=== PATIENT | female | born 1970 ===

== ENCOUNTER 2017-08-09 14:17 | Observation (INO) | payer BC ==
[2017-08-09 14:17] VITALS: PULSE 128
[2017-08-09 14:54] LABS: BASO # 0.04 K/mm3 (0.0-2.0); BASO % 0.3 % (0.0-3.0); EOS % 0.3 % (1.5-5.0); GRAN # 9.97 (1.4-6.5); GRAN % 82.2 % (50.0-68.0); LYMPH # 1.6 (1.2-3.4); LYMPH % 13.3 % (22.0-35.0); MEAN CELL VOLUME 82.9 fl (80.0-105.0); MEAN CORPUSCULAR HEMOGLOBIN 28.8 pg (25.0-35.0); MEAN CORPUSCULAR HGB CONC 34.8 g/dl (31.0-37.0); MEAN PLATELET VOLUME 9.8 fl (7.0-11.0); MONO # 0.5 (0.1-0.6); MONO % 3.9 % (1.0-6.0); RED CELL DISTRIBUTION WIDTH 12.7 % (11.5-14.5); WHITE BLOOD COUNT 12.1 10^3/ul (4.5-11.0)
[2017-08-09] MEDS ORDERED: Sodium Chloride 0.9% 1,000 ML IV STA ×2 (14:56→17:51)
[2017-08-09 15:03] LABS: ALB/GLOB RATIO 1.2 (1.1-1.8); ALKALINE PHOSPHATASE 118 U/L (38-126); ALT/SGPT 45 U/L (7-56); AST/SGOT 36 U/L (14-36); BILIRUBIN,TOTAL 0.9 mg/dL (0.2-1.3); BLOOD UREA NITROGEN 10 mg/dL (7-21); CALCIUM 10.6 mg/dL (8.4-10.5); CARBON DIOXIDE 24 mmol/L (21-33); CHLORIDE 102 mmol/L (98-107); GFR AFRICAN-AMERICAN > 60; GLUCOSE,RANDOM 110 mg/dL (70-110); MAGNESIUM 1.8 mg/dL (1.7-2.2); SODIUM 140 mmol/L (132-148); TOTAL PROTEIN 8.9 g/dL (5.8-8.3)
[2017-08-09 15:05] LABS: INR 1.09 (0.93-1.08); PARTIAL THROMBOPLASTIN TIME 28.3 Seconds (25.1-36.5)
[2017-08-09 15:15] LABS: TROPONIN I 0.04 ng/mL
[2017-08-09] MEDS ORDERED: diltiaZEM 120 mg/24 Hours CD Cap PO STA (16:06)
[2017-08-09 16:21] LABS: URINE BILIRUBIN NEGATIVE (NEGATIVE); URINE BLOOD TRACE-INTACT (NEGATIVE); URINE GLUCOSE (UA) NEGATIVE (NEGATIVE); URINE KETONE NEGATIVE (NEGATIVE); URINE LEUKOCYTE ESTERASE NEGATIVE Leu/uL (NEGATIVE); URINE PROTEIN TRACE mg/dL (<30 mg/dL); URINE UROBILINOGEN 0.2 E.U./dL (<1 E.U./dL)
[2017-08-09] MEDS: diltiaZEM IVPB 100mg in NS 100 ML IV PRN ×3 (16:23→17:28)
[2017-08-09 16:27] LABS: URINE APPEARANCE CLEAR (CLEAR); URINE COLOR YELLOW (YELLOW)
[2017-08-09 16:28] LABS: URINE RBC 0 - 2 /hpf (0-2); URINE WBC NEGATIVE /hpf (0-6)
[2017-08-09 16:39] LABS: T4 7.8 ug/dL (5.5-11.0)
[2017-08-09 16:53] LABS: THYROID STIMULATING HORMONE 0.38 mIU/mL (0.46-4.68)
--- NOTE | 2017-08-09 17:38 | ED PDOC ---
Arrival/HPI - General Chief Complaint: Palpitations Time Seen by Provider: 08/09/17 14:25 Historian: Patient - History of Present Illness Narrative History of Present Illness (Text): 08/09/17 14:20 A 46 year old female, whose past medical history includes hyperlipidemia and Atrial Fibrillation (formerly on anticoagulation, now currently taking Flecainide 50 mg and , presents to the emergency department complaining of palpitations and mild dizziness. Patient reports last night, she had couple of drinks with her and began experiencing symptoms. Patient states symptoms are familiar to her as they are relevant to her Atrial Fibrillation with RVR. Patient also notes having experienced 3 episodes of nonbilious vomiting and mild anxiety, but denies of any chest pain, shortness of breath, presyncopal collapse, diaphoresis, or any other complaints. Also, patient mentions having taken Flecainide this morning, and an extra dosage after palpitations occurred but had no relief. She has maintained regular health for the past 2 weeks. PMD: Dr. Fuller Time/Duration: Other Past Medical History - Provider Review Nursing Documentation Reviewed: Yes - Infectious Disease Hx of Infectious Diseases: None - Tetanus Immunization Tetanus Immunization: Unknown - Cardiac Hx Cardiac Disorders: Yes Hx Atrial Fibrillation: Yes Hx Mitral Valve Prolapse: Yes - Pulmonary Hx Respiratory Disorders: No - Neurological Hx Neurological Disorder: No - HEENT Hx HEENT Disorder: No - Renal Hx Renal Disorder: No - Endocrine/Metabolic Hx Endocrine Disorders: No - Hematological/Oncological Hx Blood Disorders: Yes Hx Anemia: Yes - Integumentary Hx Dermatological Disorder: No - Musculoskeletal/Rheumatological Hx Musculoskeletal Disorders: No Hx Falls: No Hx Unsteady Gait: No - Gastrointestinal Hx Gastrointestinal Disorders: Yes Hx Gastroesophageal Reflux: Yes - Genitourinary/Gynecological Hx Genitourinary Disorders: No - Psychiatric Hx Psychophysiologic Disorder: Yes Hx Anxiety: Yes Hx Emotional Abuse: No Hx Physical Abuse: No Hx Sexual Abuse: No Hx Substance Use: No - Surgical History Hx Section: Yes - Anesthesia Hx Anesthesia: Yes Hx Anesthesia Reactions: No Hx Malignant Hyperthermia: No - Suicidal Assessment Feels Threatened In Home Enviroment: No Family/Social History - Physician Review Nursing Documentation Reviewed: Yes Family/Social History: No Known Family HX Smoking Status: Former Smoker Hx Alcohol Use: Yes (Socially) Frequency of alcohol use: Few days per week Hx Substance Use: No Hx Substance Use Treatment: No Allergies/Home Meds Allergies/Adverse Reactions: Allergies No Known Allergies Allergy (Verified 09/26/16 09:12) Home Medications: Home Meds Medication Instructions Recorded Confirmed Aspirin [Ecotrin] 81 mg PO DAILY 09/26/16 08/09/17 Atorvastatin [Lipitor] 20 ng PO DAILY 09/26/16 08/09/17 Flecainide [Tambocor] 50 mg PO Q12 09/27/16 08/09/17 Review of Systems - Physician Review All systems were reviewed & negative as marked: Yes - Review of Systems Constitutional: absent: Other (no diaphoresis) Respiratory: absent: SOB Cardiovascular: Palpitations. absent: Chest Pain, Syncope Gastrointestinal: Vomiting (had 3 episodes of non bilious vomiting) Neurological: Dizziness (mild dizziness) Psychiatric: Anxiety (mild anxiety) Physical Exam Vital Signs Reviewed: Yes Vital Signs Temp Pulse Resp BP Pulse Ox 08/09/17 18:05 113 H 108/57 L 08/09/17 18:00 104 H 22 111/57 L 95 08/09/17 17:52 98.6 F 98 H 18 108/75 99 08/09/17 17:28 102 H 109/56 L 08/09/17 17:03 105 H 109/52 L 08/09/17 16:46 100 H 100/54 L 08/09/17 16:23 152 H 118/49 L 08/09/17 16:22 152 H 118/49 L 08/09/17 16:15 152 H 08/09/17 16:01 98 H 18 118/48 L 99 08/09/17 15:48 145 H 128/79 08/09/17 15:05 145 H 145/88 08/09/17 14:35 98.4 F 129 H 17 138/96 H 100 08/09/17 14:21 98.9 F 139 H 18 144/84 99 Temperature: Afebrile Blood Pressure: Normal Pulse: Tachycardic Respiratory Rate: Normal Appearance: Positive for: Well-Appearing Pain Distress: None Mental Status: Positive for: Alert and Oriented X 3 Medical Decision Making ED Course and Treatment: 08/09/17 14:25 Impression: 46 year old female with mild dizziness and palpitations. Plan: -- EKG -- Chest X-ray -- Labs -- Urinalysis -- Nasal Cannula -- Reassess and disposition Prior Visits: Notes and results from previous visits were reviewed. Patient was last seen in the emergency department on 09/26/2016 for palpitations. Patient was admitted and diagnosed with Atrial Fibrillation. Progress Notes: EKG: Ordered, reviewed, and independently interpreted the EKG. Rate : 135 BPM Rhythm : Atrial flutter with 2-1 ventricular conduction. Interpretation : No acute ischemic ST-segments. Comparison : No previous EKG for comparison. Myocardial Stress Test taken on 09/18/2016 showed: 1. Essentially normal SPECT myocardial perfusion study. 2. Fixed, anteroseptal defect is most likely due to breast attenuation. 3. Normal gated wall motion of the left ventricle. - Lab Interpretations Lab Results: 08/09/17 14:35 08/09/17 14:35 Lab Results 08/09/17 16:00: Urine HCG, Qual Negative 08/09/17 16:00: Urine Color Yellow, Urine Appearance Clear, Urine pH 7.0, Ur Specific [place] 1.010, Urine Protein Trace H, Urine Glucose (UA) Negative, Urine Ketones Negative, Urine Blood Trace-intact H, Urine Nitrate Negative, Urine Bilirubin Negative, Urine Urobilinogen 0.2, Ur Leukocyte Esterase Negative , Urine RBC 0 - 2, Urine WBC Negative, Ur Epithelial Cells 1 - 3 08/09/17 15:45: Thyroxine (T4) 7.8, TSH 3rd Generation 0.38 L 08/09/17 15:25: Urine Opiates Screen Negative, Urine Methadone Screen Negative, Ur Barbiturates Screen Negative, Ur Phencyclidine Scrn Negative, Ur Amphetamines Screen Negative, U Benzodiazepines Scrn Negative, U Oth Cocaine Metabols Negative, U Cannabinoids Screen Negative 08/09/17 14:35: PT 12.0, INR 1.09 H, APTT 28.3 08/09/17 14:35: Sodium 140, Potassium 4.0, Chloride 102, Carbon Dioxide 24, Anion Gap 18, BUN 10, Creatinine 0.6 L, Est GFR ( Amer) > 60, Est GFR ( Non-Af Amer) > 60, Random Glucose 110, Calcium 10.6 H, Magnesium 1.8, Total Bilirubin 0.9, AST 36, ALT 45, Alkaline Phosphatase 118, Lactate Dehydrogenase 617, Total Creatine Kinase 121, Troponin I 0.04 D, NT-Pro-B Natriuret Pep 442, Total Protein 8.9 H, Albumin 4.9 H, Globulin 4.0, Albumin/Globulin Ratio 1.2 08/09/17 14:35: WBC 12.1 H D, RBC 5.79, Hgb 16.7 H, Hct 48.0, MCV 82.9, MCH 28.8 , MCHC 34.8, RDW 12.7, Plt Count 274, MPV 9.8, Gran % 82.2 H, Lymph % (Auto) 13.3 L, [place] % (Auto) 3.9, Eos % (Auto) 0.3 L, Baso % (Auto) 0.3, Gran # 9.97 H , Lymph # 1.6, [place] # 0.5, Eos # 0.0, Baso # 0.04 I have reviewed the lab results: Yes - Medication Orders Current Medication Orders: diltiaZEM IVPB 100mg in NS (Cardizem 100mg In Ns) 100 mls @ 5 mls/hr IV .Q20H PRN; Protocol; 5 MG/HR PRN Reason: TITRATE PER MD ORDER Last Admin: 08/09/17 17:28 Dose: 15 mg/hr, 15 mls/hr eMAR Start Stop Document 08/09/17 17:28 EWO (Rec: 08/09/17 17:29 [facility] [id number]) Intravenous Solution Start Date 08/09/17 Start Time 17:29 MAR Pulse and Blood Pressure Document 08/09/17 17:28 EWO (Rec: 08/09/17 17:29 [facility] [id number]) Pulse Pulse Rate (60-90 beats/min) 102 Blood Pressure Blood Pressure (100/60-150/90 mm Hg) 109/56 Titration Intervention Document 08/09/17 17:28 EWO (Rec: 08/09/17 17:29 [facility] [id number]) Titration Intake Cumulative Intake (Rx) 100 Waste Amount 0 Container Volume 100 Titration Dosing Titration Dose 15 IV Rate 15 Intake/Decrease Started/Increased Cumulative Dose 100 Sodium Chloride (Sodium Chloride 0.9%) 1,000 mls @ 999 mls/hr IV .Q1H1M STA Stop: 08/09/17 18:51 Last Admin: 08/09/17 18:05 Dose: 999 mls/hr eMAR Start Stop Document 08/09/17 18:05 CNR (Rec: 08/09/17 18:05 CNR [id number]) Intravenous Solution Start Date 08/09/17 Start Time 18:05 Discontinued Medications Aspirin (Aspirin Chewable) 324 mg PO STAT STA Stop: 08/09/17 16:31 Last Admin: 08/09/17 16:42 Dose: 324 mg Diltiazem HCl (Cardizem) 20 mg IVP STAT STA Stop: 08/09/17 15:01 Last Admin: 08/09/17 15:05 Dose: 20 mg IVP Administration Document 08/09/17 15:05 EWO (Rec: 08/09/17 [id number] Charges for Administration # of IVP Administrations 1 DEC Pulse and Blood Pressure Document 08/09/17 15:05 EWO (Rec: 08/09/17 15:06 [id number] Pulse Pulse Rate (60-90 beats/min) 145 Blood Pressure Blood Pressure (100/60-150/90 mm Hg) 145/88 Diltiazem HCl (Cardizem) 40 mg IVP STAT STA Stop: 08/09/17 15:22 Last Admin: 08/09/17 15:48 Dose: 40 mg IVP Administration Document 08/09/17 15:48 EWO (Rec: 08/09/17 15:[id number] Charges for Administration # of IVP Administrations 2 MAR Pulse and Blood Pressure Document 08/09/17 15:48 EWO (Rec: 08/09/17 15:49 [id number] Pulse Pulse Rate (60-90 beats/min) 145 Blood Pressure Blood Pressure (100/60-150/90 mm Hg) 128/79 Diltiazem HCl (Cardizem) 20 mg IVP STAT STA Stop: 08/09/17 16:07 Last Admin: 08/09/17 16:22 Dose: 20 mg IVP Administration Document 08/09/17 16:22 EWO (Rec: 08/09/17 16:23 [id number] Charges for Administration # of IVP Administrations 3 MAR Pulse and Blood Pressure Document 08/09/17 16:22 EWO (Rec: 08/09/17 16:23 [id number]) Pulse Pulse Rate (60-90 beats/min) 152 Blood Pressure Blood Pressure (100/60-150/90 mm Hg) 118/49 Diltiazem HCl (Cardizem Cd) 120 mg PO STAT STA Stop: 08/09/17 16:07 Last Admin: 08/09/17 16:46 Dose: 120 mg MAR Pulse and Blood Pressure Document 08/09/17 16:46 CNR (Rec: 08/09/17 16:47 CNR [id number]) Pulse Pulse Rate (60-90 beats/min) 100 Blood Pressure Blood Pressure (100/60-150/90 mm Hg) 100/54 Diltiazem HCl (Cardizem) 20 mg IVP STAT STA Stop: 08/09/17 17:52 Last Admin: 08/09/17 18:05 Dose: 20 mg IVP Administration Document 08/09/17 18:05 CNR (Rec: 08/09/17 18:06 CNR [id number]) Charges for Administration # of IVP Administrations 1 MAR Pulse and Blood Pressure Document 08/09/17 18:05 CNR (Rec: 08/09/17 18:06 CNR [id number]) Pulse Pulse Rate (60-90 beats/min) 113 Blood Pressure Blood Pressure (100/60-150/90 mm Hg) 108/57 Sodium Chloride (Sodium Chloride 0.9%) 1,000 mls @ 999 mls/hr IV .Q1H1M STA Stop: 08/09/17 15:56 Last Admin: 08/09/17 15:02 Dose: 999 mls/hr eMAR Start Stop Document 08/09/17 15:02 EWO (Rec: 08/09/17 15:03 EWO [id number]) Intravenous Solution Start Date 08/09/17 Start Time 15:03 End Date 08/09/17 End time 16:03 Total Infusion Time 60 Lorazepam (Ativan) 1 mg PO ONCE ONE PRN Reason: Protocol Stop: 08/09/17 15:23 Last Admin: 08/09/17 15:31 Dose: 1 mg - Scribe Statement The provider has reviewed the documentation as recorded by the Cesar Sanchez Provider Scribe Attestation: All medical record entries made by the Melaniibgemini were at my direction and personally dictated by me. I have reviewed the chart and agree that the record accurately reflects my personal performance of the history, physical exam, medical decision making, and the department course for this patient. I have also personally directed, reviewed, and agree with the discharge instructions and disposition. Disposition/Present on Arrival - Present on Arrival History of DVT/PE: No History of Uncontrolled Diabetes: No Urinary Catheter: No History of Decub. Ulcer: No History Surgical Site Infection Following: None - Disposition
[2017-08-09] MEDS ORDERED: diltiaZEM IVPB 100mg in NS 100 ML IV PRN (18:20)
--- NOTE | 2017-08-09 19:31 | RAD ---
HISTORY: Palpitation COMPARISON: No prior. FINDINGS: LUNGS: No active pulmonary disease. PLEURA: No significant pleural effusion identified, no pneumothorax apparent. CARDIOVASCULAR: Normal. OSSEOUS STRUCTURES: No significant abnormalities. VISUALIZED UPPER ABDOMEN: Normal. OTHER FINDINGS: None. IMPRESSION: No interval acute cardiopulmonary disease appreciated.
[2017-08-09 22:43] VITALS: BMI 33.4
[2017-08-09] MEDS ORDERED: Pneumococcal 23-Valent Vaccine IM ONE (22:43)
[2017-08-09] MEDS ORDERED: Influenza Vaccine 60 mcg/0.5 mL SYR (4YR UP) IM ONE (22:43)
[2017-08-10] MEDS ORDERED: Heparin 25,000units in D5W 25,000 UNITS/250 ML BAG IV PRN (00:18)
[2017-08-10 02:27] VITALS: O2SAT 98
--- NOTE | 2017-08-10 08:46 | HP ---
HISTORY OF PRESENT ILLNESS: I was called to the ER [facility] to see Syed Holguin. She comes in with palpitations and mild dizziness, it has been going on for 24 hours. She has had some alcohol earlier. She has atrial fibrillation with rapid RVR in the past. Three episodes of nonbilious vomiting and mild anxiety. No chest pain or shortness of breath. She takes flecainide on a daily basis. Her doctor is Dr. Bettencourt. They have been trying to call Dr. Bettencourt in all day, it is now 08:48 at night. PAST MEDICAL HISTORY: She has a past medical history of high cholesterol, atrial fibrillation, mitral valve prolapse, anemia, reflux, and anxiety. PAST SURGICAL HISTORY: She had a . FAMILY HISTORY: Hypertension in the family. SOCIAL HISTORY: She still smokes cigarettes. Social alcohol. No substance abuse. ALLERGIES: NO KNOWN DRUG ALLERGIES. MEDICATIONS: She takes Ecotrin, Lipitor, and Tambocor which is flecainide. REVIEW OF SYSTEMS: No acute vision changes or hearing changes. No neck pain. She has palpitations. No chest pain. She vomited 3 times, nonbilious. She has dizziness and some anxiety. No abdominal pain, but she did threw up. No leg pain. PHYSICAL EXAMINATION: VITAL SIGNS: She has a 98.6 temp, the pulse is ranged from 152 to 98, it is 113 now, respiratory rate is 22, 111/57 blood pressure, and 99% O2 sat on room air. HEENT: Head is atraumatic and normocephalic. She is well-appearing at this time and comfortable with a heart rate about 100 now. Extraocular muscles are intact. Pupils are equal and reactive to light. Throat is moist. NECK: Supple. HEART: Regular rate, but irregular. It goes from 80 to 120 on my counting, but she is comfortable, much better than earlier. LUNGS: Clear to auscultation with decreased breath sounds. ABDOMEN: Soft and nontender. Positive bowel sounds. No guarding or rebound. No CVA tenderness. EXTREMITIES: Have no edema. SKIN: For the most part is intact. LYMPHATIC: Thyroid midline. No appreciable palpable lymphadenopathy. NEUROLOGIC: Cranial nerves II through XII grossly intact. MEDICATIONS: She has been getting diltiazem, aspirin, atorvastatin, and multiple doses of Cardizem. LABORATORY DATA: She has 12.1 white count, hopefully this is inflammatory, I will check her CBC tomorrow, if the white count still elevated, we will discuss with ID. Hemoglobin 16.7, hematocrit 48, and platelets 274. INR is 1.09. Sodium 140, potassium is 4, BUN 10, and creatinine 0.64. GFR greater than 60. Sugar is 110. Calcium is 10.6 and magnesium 1.8. Total bilirubin is 0.98, AST is 36, ALT is 45, and alkaline phosphatase is 118. Troponin is 0.04. BNP is 442. Total protein is 8.9. TSH is 0.38. I will repeat the TSH tomorrow and a troponin. Urine is clean. is negative and negative toxicology. Presently, she is on Cardizem drip and heart rate is about 100 to 110. I put her back on aspirin and her atorvastatin. We will again to Cardiology. I put her on Zofran. Check her troponin and TSH tomorrow. She will be on telemetry all night. She is here for atrial fibrillation and rapid ventricular response. Osvaldo Fuller DO MTDD
--- NOTE | 2017-08-10 10:00 | CARD ---
APPROVED REPORT EKG Measurement Heart [id number] <Conclusion> AF with RVR, new STTW changes
[2017-08-10 10:10] LABS: HEMATOCRIT 39.7 % (36.0-48.0); MEAN CELL VOLUME 84.5 fl (80.0-105.0); MEAN CORPUSCULAR HEMOGLOBIN 28.1 pg (25.0-35.0); MEAN CORPUSCULAR HGB CONC 33.2 g/dl (31.0-37.0); MEAN PLATELET VOLUME 9.6 fl (7.0-11.0); RED CELL DISTRIBUTION WIDTH 12.9 % (11.5-14.5); WHITE BLOOD COUNT 9.4 10^3/ul (4.5-11.0)
--- NOTE | 2017-08-10 10:20 | CARD ---
APPROVED REPORT EKG Measurement Heart [id number] <Conclusion> Sinus bradycardia, new
[2017-08-10 10:26] LABS: ALB/GLOB RATIO 1.3 (1.1-1.8); ALKALINE PHOSPHATASE 78 U/L (38-126); ALT/SGPT 41 U/L (7-56); AST/SGOT 26 U/L (14-36); BILIRUBIN,TOTAL 0.8 mg/dL (0.2-1.3); BLOOD UREA NITROGEN 14 mg/dL (7-21); CALCIUM 9.6 mg/dL (8.4-10.5); CARBON DIOXIDE 29 mmol/L (21-33); CHLORIDE 103 mmol/L (98-107); GFR AFRICAN-AMERICAN > 60; GLUCOSE,RANDOM 102 mg/dL (70-110); SODIUM 140 mmol/L (132-148); TOTAL PROTEIN 6.9 g/dL (5.8-8.3)
[2017-08-10 10:40] LABS: TROPONIN I 0.17 ng/mL
[2017-08-10 13:08] VITALS: BP 107/44; PULSE 61; RESP 18; TEMP 98.8
--- NOTE | 2017-08-10 19:59 | CON ---
DATE: 08/10/2017 INDICATIONS: Paroxysmal atrial fibrillation. HISTORY OF PRESENT ILLNESS: This is a 46-year-old woman known to me, who is admitted through the emergency room yesterday when she presented with palpitations and vomiting and found to be in atrial fibrillation. The night before, she had few drinks at dinner with her , otherwise recent health has been stable. She has not had atrial fibrillation in sometime and is taking flecainide 50 mg b.i.d. There was no chest pain, orthopnea, PND, syncope, presyncope, lightheadedness, dizziness, vertigo, edema, fever, chills, cough, sputum production, hemoptysis, abdominal pain, diarrhea, constipation, or melena. PAST MEDICAL HISTORY: Is notable for paroxysmal atrial fibrillation. She has undergone evaluation with a negative nuclear stress test in 09/2016 and unremarkable echocardiogram in 08/2016. She had been Eliquis, but this was discontinued when she was free of atrial fib for several months. There is a history of hyperlipidemia. She is a former smoker. There was no history rheumatic fever, myocardial infarction, angina, congestive heart failure, stroke, TIA, diabetes, or gout. MEDICATIONS: At the time of admission include Lipitor, flecainide, and aspirin. ALLERGIES: THERE ARE NO KNOWN MEDICATION ALLERGIES. SOCIAL HISTORY: She lives at home with her . She is ambulatory. She does not currently smokes cigarettes. She drinks alcohol on rare occasions. FAMILY HISTORY: Noncontributory. REVIEW OF SYSTEMS: A 10-point review of systems is otherwise unremarkable except as noted above. PHYSICAL EXAMINATION GENERAL: She is a well-developed woman lying in bed on telemetry, in no acute distress. VITAL SIGNS: Notable for sinus rhythm. This morning, she had been atrial fibrillation, which was rapid. She was treated with Cardizem in the emergency room. During the evening, she developed slow heart rate and Cardizem was discontinued. During the night, she reverted to sinus rhythm. She is afebrile. Blood pressure 125/68, respirations 16 to 20, O2 sat 98% to 100% on room on nasal cannula. HEENT: Reveals no neck vein distention, thyromegaly, or carotid bruits. Mucous membranes are moist. Conjunctiva pink. NECK: Supple. LUNGS: Siu clear throughout. HEART: Reveals normal first and second heart sounds. No murmur, gallop, rub, or click. PMI is not displaced. ABDOMEN: Soft. Bowel sounds present. No mass, organomegaly, tenderness, rebound, or guarding. No CVA tenderness. No palpable abdominal aortic aneurysm. EXTREMITIES: Reveal no cyanosis, clubbing, or edema. NEUROLOGIC: She is awake, alert, and oriented. PSYCHIATRIC: Normal as to mood and affect. SKIN: Warm and dry. No rash or cellulitis. LABORATORY AND IMAGING: A portable chest x-ray reveals no interval acute cardiopulmonary disease appreciated. EKG demonstrates atrial fibrillation with rapid ventricular response. White count 12,100, hemoglobin 16.7, hematocrit 48, and platelet count 274,000. PT 12, INR 1.09 and PTT 28.3. Electrolytes, BUN, creatinine, and blood sugar unremarkable. Calcium 10.6 and magnesium 1.8. LFTs unremarkable. CK 121, troponin 0.04 and 0.27, this is second sample. T4 7.8, TSH 0.38. Urinalysis unremarkable as noted. Toxic screen was negative. IMPRESSION: Syed Holguin is a 46-year-old woman, has a recurrence of atrial fibrillation, which is paroxysmal probably precipitated by a couple of drinks the night before. Second troponin is moderately elevated. I will repeat her EKG this morning. A third sample of troponin is pending. I will resume the flecainide and start her on Eliquis. She had fairly recent echocardiogram and nuclear stress test, I will not repeat these at the moment. She can be out of bed, ambulate with early discharge plan and close outpatient followup. She will not drink alcohol anymore. She will avoid caffeine other stimulants. Her ANDREA score is 1. She is followed by Dr. Bettencourt in our office. Jesus Stevens MD
--- NOTE | 2017-08-11 08:32 | DS ---
HISTORY: She is resting comfortably in bed. She is finally back on regular rhythm. She is comfortable. No chest pain or shortness of breath. She is eating. She is in good spirits. She is currently on Ecotrin, Eliquis, Lipitor, flecainide and Zolpidem, which she has been taking and she ate well. PHYSICAL EXAMINATION: VITAL SIGNS: 98.6 temperature, 68, pulse, 125/68 blood pressure, 20 respiratory rate, and 90% O2 sat on nasal cannula. Her pulse is regular and strong in the 60s. HEENT: Head is atraumatic and normocephalic. HEART: Regular rate. LUNGS: Clear to auscultation. ABDOMEN: Soft. EXTREMITIES: No edema. She has a white count which came down to normal 9.4, hemoglobin 13.2, hematocrit 39.7, platelets 217. She has 140 sodium, potassium is 4, BUN 14, creatinine 0.7, GFR is greater than 60, sugar is 102, calcium is 9.6. Total bilirubin 0.8. AST is 26, ALT is 41, alk phos 78, troponin was 0.04, then it bounced to 0.27 when she was irregular, now came down to 0.17. She had a normal stress test recently. Total protein 6.9 and a TSH improved to 0.58. I discussed this with Dr. Stevens, Professor Of Anthropology, who said if the troponin came down and her pulse stayed regular, we can discharge her. She will follow up in the outpatient. She will be discharged home on observation status today on Ecotrin, Eliquis, Lipitor and Tambocor. She will be followed up as an outpatient with Dr. Fuller, Dr. Bettencourt, and Dr. Stevens. She did quite well, we will keep her on observation status for atrial fibrillation. We will discuss with the nurse and write the prescriptions. Osvaldo Fuller DO
== END 2017-08-10 13:13 | disposition home or self-care (01) ==
LOC: ED 14:17 → ERH 16:41 → 2RNO 18:45
PROVIDERS: ADMIT Family Medicine; ATTEND Family Medicine
DX: I48.0 Paroxysmal atrial fibrillation (principal); F41.9 Anxiety disorder, unspecified; K21.9 Gastro-esophageal reflux disease without esophagitis; I34.1 Nonrheumatic mitral (valve) prolapse; E78.00 Pure hypercholesterolemia, unspecified; F17.210 Nicotine dependence, cigarettes, uncomplicated; R11.10 Vomiting, unspecified; R42 Dizziness and giddiness; Z79.82 Long term (current) use of aspirin; Z82.49 Family history of ischemic heart disease and other diseases of the circulatory system
CPT/HCPCS: 36415; 71010; 80053; 81001; 82550; 83615; 83735; 83880; 84436; 84443; 84484; 84703; 85025; 85027; 85610; 85730; 93005; 96361; 96374; 96375; 96376; 99285; G0378; G0480; J1644; J7040